=== PATIENT | female | born 1935 | race Caucasian/White ===

== ENCOUNTER 2018-12-12 19:36 | Observation (INO) | payer MEDICARE ==
[~2018-12-12] VITALS: Ht 152.4 cm; Wt 82.6 kg
[2018-12-12 19:47] VITALS: BP 117/77
[2018-12-12] MEDS ORDERED: SYNTHROID100 MC1 PO (19:53)
[2018-12-12] MEDS ORDERED: HYZAAR 100-12.1 EACH PO (19:53)
[2018-12-12] MEDS ORDERED: KLOR-CON 1010 MEQ PO (19:54)
[2018-12-12] MEDS ORDERED: CRESTOR20 MG PO (19:54)
[2018-12-12 20:31] LABS: ABSOLUTE BASOPHILS 0.1 thou/uL (0.0-0.2); ABSOLUTE EOSINOPHILS 0.2 thou/uL (0.0-0.7); ABSOLUTE LYMPHOCYTES 2.3 thou/uL (0.8-5.3); ABSOLUTE MONOCYTES 0.8 thou/uL (0.0-1.2); ABSOLUTE NEUTROPHILS 3.2 thou/uL (1.6-8.1); BASOPHILS 1.2 %; LYMPHOCYTES 35.3 %; MCH 29.8 pg (26.0-34.0); MCHC 33.3 g/dL (28.0-37.0); MCV 89.6 fL (80.0-100.0); MONOCYTES 11.5 %; MPV 6.7 fl. (7.2-11.1); NUCLEATED RBCS 0 /100WBC; PLATELET COUNT* 286 thou/uL (150-400); RBC 4.68 mil/uL (4.20-5.00); RDW-CV 15.3 % (10.5-14.5); WBC 6.6 thou/uL (4.0-11.0)
[2018-12-12 20:43] LABS: APTT 27.1 Seconds (25.0-31.3); PROTIME 9.9 Seconds (9.20-11.50)
[2018-12-12 21:02] LABS: ALBUMIN 3.5 g/dL (3.4-5.0); ALKALINE PHOSPHATASE 71 U/L (46-116); ANION GAP 10 mmol/L (7-16); BUN 18 mg/dL (7-18); CALCIUM 9.2 mg/dL (8.5-10.1); CHLORIDE 99 mmol/L (98-107); CK-MB MASS 2.6 ng/mL (<0.5-3.6); CO2 25 mmol/L (21-32); CREATININE 0.9 mg/dL (0.6-1.3); GLUCOSE 130 mg/dL (70-99); LIPASE 128 U/L (73-393); MAGNESIUM 2.2 mg/dL (1.8-2.4); NT-PRO BRAIN NAT PEPTIDE 2479 pg/mL (<300); POTASSIUM 4.1 mmol/L (3.5-5.1); SGOT 34 U/L (15-37); SGPT 31 U/L (30-65); SODIUM 134 mmol/L (136-145); TOTAL BILIRUBIN 0.5 mg/dL (<0.1-1.0); TROPONIN-I LEVEL <0.06 ng/mL (<0.06)
[2018-12-12 23:30] VITALS: BP 115/82
[2018-12-12 23:42] VITALS: BP 112/68
[2018-12-13] MEDS ORDERED: K-TAB10 MEQ PO (00:48)
[2018-12-13] MEDS ORDERED: MULTI VITAMIN1 EACH PO (02:39)
[2018-12-13] MEDS ORDERED: FISH OIL 1,001000 M2 PO (02:41)
[2018-12-13] MEDS ORDERED: PROBIOTIC1 EAC1 PO (02:41)
[2018-12-13] MEDS ORDERED: VITAMIN D1000 UNI1 PO (02:42)
[2018-12-13 04:00] VITALS: BP 114/77
--- NOTE | 2018-12-13 05:08 | NUR ---
RECEIVED REPORT AND ASSUMED CARE OF PATIENT AT 2330 FROM ER. PATIENT IN JUNCTIONAL TACHYCARDIA UPON ARRIVAL, RATE IN THE 110-120'S. PATIENT OBSERVED IN BOTH JUNCTIONAL TACHYCARDIA AND SINUS TACHYCARDIA THIS SHIFT WITH HR RANGING FROM 100-120'S. PATIENT ASYMPTOMATIC. DENIES PAIN AND DISCOMFORT. IN FACT, PATIENT STATES SHE "FEELS BETTER SINCE ARRIVAL TO ER." PATIENT BELIEVES HEART RATE MAY BE ELEVATED DUE TO STRESS. HER AND HER JUST MOVED TO INDEPENDENT LIVING FACILITY, [facility]. SHE HAS BEEN WORKING HARD DURING THE MOVE AND IS UPSET/ANXIOUS ABOUT THE NEW LIVING SITUATION. PATIENT ENCOURAGED TO RELAX AND REST THIS SHIFT. SHE WAS ABLE TO SLEEP FOR A FEW HOURS. CALL LIGHT WITHIN REACH.
[2018-12-13 08:15] VITALS: BP 127/84
[2018-12-13 12:07] VITALS: BP 131/82
[2018-12-13] MEDS ORDERED: DILTIAZEM HCL90 MG PO (12:58)
[2018-12-13 13:09] VITALS: BP 131/82
--- NOTE | 2018-12-13 14:45 | NUR ---
ASSUMED CARE OF PT AT 0730. HEAD TO TOE ASSESSMENT COMPLETED THIS AM. PATIENT DENIES ANY PAIN. PATIENT CONCERNED ABOUT NOT TAKING REGULAR BP MEDS THIS AM. CARDIOLOGY IN TO SEE PATEINT CLOSE TO NOON. LOSARTAN WAS D/C AND PATIENT TO START DILTIAZEM ON 12/13/18. PATEINT BP WAS 131/82 AT 1200. DILTIAZEM GIVEN AT 1300. AT 1355 BP WAS 101/62. PT UP TO BATHROOM WITH STAND BY ASSIST MULTPLE TIMES THIS AM. FALL PRECATIONS IN PLACE.
[2018-12-13 16:30] VITALS: BP 116/92
--- NOTE | 2018-12-13 16:45 | NUR ---
DISCHARGE INFORMATION GONE OVER WITH PATIENT AT 1630. SCRIPT GIVEN TO PATIENT. PATIENT VERBALIZED UNDERSTANDING OF DISCHARGE INSTRUCTIONS. BP AT 1630 WAS 116/92, PULSE WAS 102, AND O2 STAT 98. PATIENTS IV WAS D/C. HOME MEDS RETURNED TO THE PATIENT AT TIME OF D/C. PATIENT GATHERED ALL OF HER BELONGINGS AND I PUSHED HER OUT TO THE CAR IN A WHEELCHAIR.
--- NOTE | 2018-12-13 17:50 | NUR ---
I HAVE REVIEWED AND AGREE WITH THE ASSESMENT, NOTES AND DISCHARGE OF YFN Resendiz RN ON 12/13/18
--- NOTE | 2018-12-15 14:29 | EKG ---
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
--- NOTE | 2018-12-15 14:31 | EKG ---
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
--- NOTE | 2018-12-15 15:01 | CON ---
[address] [address] CONSULTATION Name: GHADA MARTINEZ Room: [address] Valdez Bustos#: [id number] Admission: 12/12/18 Attend Phys: Joao Hummel, Discharge: 12/13/18 Date of : 31 Report #: [id number] THIS REPORT FOR: //name// CC: Manny Hummel CHIEF COMPLAINT: Weakness, fatigue, tachycardia. HISTORY OF PRESENT ILLNESS: The patient has been under a lot of stress and she had just sold her house with her , [place] yesterday and she felt sudden onset of weakness, dizziness, and lightheadedness. She presented to the Emergency Room with a narrow complex tachycardia, rates in the 120s to 140s. She did not have chest pain or pressure. She had not been short of breath. Prior to this, she did not have syncope or presyncope. She has no neuro symptoms of slurred speech, numbness, weakness, or visual symptoms. She has never had any stroke or TIA. She has no cardiovascular history. PAST MEDICAL HISTORY: Significant for hypertension, hypothyroidism, hyperlipidemia. HOME MEDICATIONS: Include losartan/hydrochlorothiazide 100/12.5 mg daily, Synthroid 100 mcg daily, Crestor 20 mg daily, and potassium chloride 10 mEq p.o. b.i.d. ALLERGIES: SHE HAS ALLERGIES TO SULFA. FAMILY HISTORY: Positive for high blood pressure, otherwise unremarkable. SOCIAL HISTORY: She is and nonsmoker. REVIEW OF SYSTEMS: GENERAL: No fevers or chills. No weight loss. PULMONARY: No wheezing or cough. HEMATOLOGIC: No anemia or bleeding disorders. MALIGNANCY: Positive history of remote breast cancer surgery in 1996. ALLERGIES: TO SULFA. No contrast dye or aspirin allergies. PSYCHIATRIC: No depression or anxiety. CARDIOVASCULAR: Positive palpitations. No chest discomfort, no orthopnea, no PND, no edema. ENDOCRINE: No diabetes. Positive thyroid disease. GASTROINTESTINAL: No nausea, vomiting, hematemesis, or melena. GENITOURINARY: No dysuria or hematuria. PHYSICAL EXAMINATION: VITAL SIGNS: Blood pressure is 131/82, pulse 60-102 beats per minute. GENERAL: This is a pleasant elderly female. She is alert and oriented, [place] [address] CONSULTATION Name: GHADA MARTINEZ Room: [address] Valdez Bustos#: [id number] Admission: 12/12/18 Attend Phys: Joao Hummel, Discharge: 12/13/18 Date of : 31 Report #: [id number] NECK: Supple. No jugular venous distention. CARDIOVASCULAR: Regular. I cannot hear a murmur or S3. LUNGS: Clear to auscultation. ABDOMEN: Soft, nontender. EXTREMITIES: There is no peripheral edema. LABORATORY DATA: Electrocardiogram on presentation demonstrated a heart rate of 120 beats per minute with a narrow complex tachycardia with an underlying first-degree AV block noted on telemetry. Hemoglobin is 14.0, white blood count 6.6, platelet count is 286,000. INR is 1. Sodium is 134, potassium is 4.1, chloride is 99, CO2 is 24, BUN is 18, creatinine 0.9, GFR is 60. AST and ALT are all normal. Troponin I is 0.06 x 3 sets. BNP is 2479. TSH 1.872. Chest x-ray showed minor strand-like atelectasis in the left base. IMPRESSION: 1. Paroxysmal supraventricular tachycardia. She appears to have an atrial-appearing tachycardia. I think this can be managed medically. She does need some cardiovascular testing as an outpatient. She does not have associated angina or congestive heart failure. There is no record of stroke or TIA. I would like to start her on Cardizem 180 mg daily and discontinue her current blood pressure combination pill. 2. Essential hypertension as noted above. We will treat this with a calcium channel lachelle. 3. Stress anxiety. This could have triggered her event. We will arrange for outpatient echo testing and stress testing, but I think it is okay for her to go home to complete her cardiac workup. <ELECTRONICALLY SIGNED> By: Tino Orr MD, FACC 12/15/18 1501 1220 [id number] Orr MD, FACC /nt
== END 2018-12-13 16:40 | disposition home or self-care (01) ==
LOC: M.ERS 19:36 → M.TBA-ER 22:11 → M.2W 22:11
PROVIDERS: Family Medicine; ADMIT Family Medicine
DX: R42 Dizziness and giddiness (principal); E86.0 Dehydration; F41.9 Anxiety disorder, unspecified; F43.9 Reaction to severe stress, unspecified; I47.1 Supraventricular tachycardia; R00.0 Tachycardia, unspecified; R53.1 Weakness; E03.9 Hypothyroidism, unspecified; E78.5 Hyperlipidemia, unspecified; Z79.899 Other long term (current) drug therapy; Z85.3 Personal history of malignant neoplasm of breast; Z85.42 Personal history of malignant neoplasm of other parts of uterus